=== PATIENT | female | born 1990 | race Two or more races ===

== ENCOUNTER 2020-01-24 15:51 | Emergency (ER) | payer MEDICAID, OTHER ==
[~2020-01-24] VITALS: Ht 160 cm; Wt 63.5 kg
[2020-01-24 16:00] VITALS: BP 114/75
[2020-01-24] MEDS ORDERED: Omnipaque-300 100ml vial INJ PRN (16:00)
--- NOTE | 2020-01-24 16:00 | NUR ---
ED Nurse Note: Pt brought in by ambulance [facility] d/t right sided lower abdominal pain that started today. Pt denies n/v/d. Denies fever. Respirations even and unlabored on room air. Vitals stable as documented.
[2020-01-24] MEDS ORDERED: KEPPRA500 M4 ORAL (16:05)
[2020-01-24] MEDS ORDERED: DiphenhydrAMINE 50mg/ml Inj IVP ONE (16:15)
[2020-01-24] MEDS ORDERED: Morphine Sulfate 2mg/ml Inj(IV/IM USE ONLY) IVP ONE (16:15)
--- NOTE | 2020-01-24 16:15 | NUR ---
ED Nurse Note: Applied seizure pads. Bed in lowest position.
--- NOTE | 2020-01-24 16:29 | Diagnostic Imaging Report ---
Indication: Chest pain Technique: One view of the chest Comparison: none Findings: Lungs and pleural spaces are clear. Heart size is normal. Impression: No acute process
--- NOTE | 2020-01-24 16:54 | Emergency Room Report ---
History of Present Illness General Chief Complaint: Abdominal Pain Source: Patient Present Illness HPI 29-year-old female with no segment past medical history brought in by paramedics due to increased abdominal pain the right side. Patient reports that she has history of cholelithiasis that was diagnosed 5 months ago however has not been able to see a specialist yet as patient has had insurance changes. Patient has been staying at a women's house after being found retirement on January. Reports that she has always been short of breath and has history of asthma. Denies any new onset of shortness of breath and cough or congestion. Denies fever and chills. Rates the pain right upper quadrant tenderness guarding. Denies any nausea vomiting at this time denies any loose stools or diarrhea. Reports that when she was in retirement she had her own self. 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 Denies . Denies drug use, tobacco smoke and other drug use. Denies alcohol intake at this time. Reports that has a history of anxiety. Is afebrile and vitals are within normal limits. Allergies: Coded Allergies: No Known Allergies (Unverified , 01/24/20) COVID-19 Screening Contact w/high risk pt: No Recent Travel to affected area: No Experienced COVID-19 symptoms?: No Patient History Past Medical History: see triage record Past Surgical History: none Pertinent Family History: none Last Menstrual Period: 01/17/20 Now: No Immunizations: UTD Reviewed Nursing Documentation: PMH: Agreed; PSxH: Agreed Nursing Documentation-PM Past Medical History: No History, Except For Hx Asthma: Yes Hx Gastrointestinal Problems: Yes - gallstone Hx Seizures: Yes Review of Systems All Other Systems: negative except mentioned in HPI Physical Exam Vital Signs Date Time Temp Pulse Resp B/P (MAP) Pulse Ox O2 Delivery O2 Flow Rate FiO2 01/24/20 15:57 98.2 60 17 105/72 (83) 100 Room Air Sp02 EP Interpretation: reviewed, normal General Appearance: alert, GCS 15, non-toxic, mild distress Head: normocephalic, atraumatic Eyes: bilateral eye normal inspection, bilateral eye PERRL ENT: hearing grossly normal, normal pharynx, no angioedema, normal voice Neck: full range of motion, supple/symm/no masses Respiratory: chest non-tender, lungs clear, normal breath sounds, no rhonchi, no wheezing, speaking full sentences Cardiovascular #1: regular rate, rhythm, no edema, no murmur Gastrointestinal: guarding - Right upper quadrant, Jose sign positive Rectal: deferred Genitourinary: no CVA tenderness Musculoskeletal: back normal Neurologic: alert, oriented Psychiatric: judgement/insight normal, memory normal, mood/affect normal, no suicidal/homicidal ideation Skin: no rash Lymphatic: no adenopathy Medical Decision Making PA Attestation All my diagnosis and treatment plans were reviewed ad discussed with my supervising physician Dr. Luther Diagnostic Impression: Primary Impression: Cholelithiases Additional Impressions: Liver hemangioma Amphetamine abuse ER Course 29-year-old female with no segment past medical history brought in by paramedics due to increased abdominal pain the right side. Patient reports that she has history of cholelithiasis that was diagnosed 5 months ago however has not been able to see a specialist yet as patient has had insurance changes. Patient has been staying at a women's house after being found retirement on January. Reports that she has always been short of breath and has history of asthma. Denies any new onset of shortness of breath and cough or congestion. Denies fever and chills. Rates the pain right upper quadrant tenderness guarding. Denies any nausea vomiting at this time denies any loose stools or diarrhea. Reports that when she was in retirement she had her own self. 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 Denies . Denies drug use, tobacco smoke and other drug use. Denies alcohol intake at this time. Reports that has a history of anxiety. Is afebrile and vitals are within normal limits. Ddx considered but are not limited to: appendicitis, cholecystis, gastritis, gastroenteritis, UTI, pyelonephritis, SBO, diverticulitis, influenza with GI manifestation, [place], complication with Vital signs: are WNL, pt. is afebrile H&PE are most consistent with: Cholelithiasis without cholecystitis, hemangioma , amphetamine abuse ORDERS: Abdominal pain set, lactic acid, abdominal ultrasound, EKG and chest x- ray, Zofran, ibuprofen ED INTERVENTIONS: NS bolus, morphine, Zofran, Benadryl DISCHARGE: At this time pt. is stable for d/c to home. Will provide printed patient care instructions, and any necessary prescriptions. Care plan and follow up instructions have been discussed with the patient prior to discharge. Follow-up with your primary doctor for referral to general surgeon, take medication as directed, avoid eating greasy food. If worsening symptoms return to emergency room EKG Diagnostic Results Rate: normal Rhythm: NSR ST Segments: no acute changes Other Impression No acute ST changes Chest X-Ray Diagnostic Results Chest X-Ray Diagnostic Results : Chest X-Ray Ordered: Yes # of Views/Limited/Complete: 1 View Indication: Shortness of Breath EP Interpretation: Yes PA Xray: Interpretation reviewed, by supervising MD, and agrees with findings. Interpretation: no consolidation, no effusion, no pneumothorax Impression: No acute disease Electronically Signed by: Mallory Mcarthur PA-C CT/MRI/US Diagnostic Results CT/MRI/US Diagnostic Results : Imaging Test Ordered: abd US Impression IMPRESSION: 2 echogenic foci within the liver measuring around 1 cm may represent atypical hemangiomas, nonspecific. May consider follow-up nonemergent multiphasic liver CT or MRI as warranted. A few shadowing gallstones without wall thickening or pericholecystic free fluid. Wall measures 3 mm. Report of a positive sonographic Jose's sign, clinically correlate. CBD 2 mm Last Vital Signs Date Time Temp Pulse Resp B/P (MAP) Pulse Ox O2 Delivery O2 Flow Rate FiO2 01/24/20 15:57 98.2 60 17 105/72 (83) 100 Room Air Disposition: HOME, SELF-CARE Condition: Stable Referrals: NON PHYSICIAN (PCP) Patient Instructions: Cholelithiasis, [id number] Additional Instructions: Follow-up with your primary doctor for referral to general surgeon, take medication as directed, avoid eating greasy food, avoid drinking alcohol, if worsening symptoms return to emergency room. Take medication as directed, follow-up with your primary doctor, you need to stay home for self quarantine due to Covid 19 precautions for 14 days Mallory Kerns Jan 24, 2020 16:54
[2020-01-24 17:07] LABS: BASOPHILS % (AUTO) 0.9 % (0.0-2.0); EOSINOPHILS % (AUTO) 1.1 % (0.0-3.0); HEMATOCRIT 39.3 % (37.0-47.0); HEMOGLOBIN 13.8 G/DL (12.0-16.0); LYMPHOCYTES % (AUTO) 38.3 % (20.0-45.0); MEAN CORPUSCULAR VOLUME 94 FL (80-99); MONOCYTES % (AUTO) 6.2 % (1.0-10.0); NEUTROPHILS % (AUTO) 53.5 % (45.0-75.0); PLATELET COUNT 212 K/UL (150-450); RED CELL DISTRIBUTION WIDTH 11.1 % (11.6-14.8); WHITE BLOOD COUNT 7.4 K/UL (4.8-10.8)
[2020-01-24 17:12] LABS: INR 1.1 (0.9-1.1)
[2020-01-24 17:37] LABS: CKMB 1.3 NG/ML (0.0-3.6)
[2020-01-24 18:00] VITALS: BP 121/78
--- NOTE | 2020-01-24 18:06 | Diagnostic Imaging Report ---
History: PAIN Exam: US ABDOMEN Comparison: None available FINDINGS: Abdominal aorta and inferior vena cava appear within limits. Visualized portions of the head and body of the pancreas appear within limits. 2 echogenic foci within the liver measuring around 1 cm may represent atypical hemangiomas, nonspecific. May consider follow-up nonemergent multiphasic liver CT or MRI as warranted. The liver measures 15.9 cm and otherwise appears within limits. A few shadowing gallstones without wall thickening or pericholecystic free fluid. Wall measures 3 mm. Report of a positive sonographic Jose's sign, clinically correlate. CBD 2 mm. The right kidney measures 9.7 cm in length. The left kidney measures 9.8 cm in length. No hydronephrosis or free fluid seen. The spleen measures 8.1 cm and appears within limits. IMPRESSION: 2 echogenic foci within the liver measuring around 1 cm may represent atypical hemangiomas, nonspecific. May consider follow-up nonemergent multiphasic liver CT or MRI as warranted. A few shadowing gallstones without wall thickening or pericholecystic free fluid. Wall measures 3 mm. Report of a positive sonographic Jose's sign, clinically correlate. CBD 2 mm
[2020-01-24 19:07] LABS: APPEARANCE,URINE SLIGHTLY CLOUDY; BILIRUBIN, URINE NEGATIVE (NEGATIVE); COLOR,URINE AMBER; GLUCOSE, URINE (UA) NEGATIVE (NEGATIVE); KETONES,URINE 2+ (NEGATIVE); NITRITE,URINE NEGATIVE (NEGATIVE); PH,URINE 7 (4.5-8.0); PROTEIN,URINE NEGATIVE (NEGATIVE); UROBILINOGEN,URINE 1 MG/DL (0.0-1.0)
--- NOTE | 2020-01-24 19:13 | NUR ---
HAND-OFF: Report given to KINSEY Reyes. Pt in stable condition; plan of care endorsed.
--- NOTE | 2020-01-24 19:15 | NUR ---
ED Nurse Note: Report received from KINSEY Quinones. Pt was woken up upon entering room, she is in no acute distress and resting comfortably. Will continue to monitor pt.
[2020-01-24 19:48] LABS: LEUKOCYTE ESTERASE ,URINE 1+ (NEGATIVE)
[2020-01-24 20:17] LABS: ANION GAP 13 mmol/L (5-15); BLOOD UREA NITROGEN 15 mg/dL (7-18); CALCIUM 9.6 MG/DL (8.5-10.1); CARBON DIOXIDE 23 MMOL/L (21-32); CHLORIDE 103 MMOL/L (98-107); CREATININE 0.8 MG/DL (0.55-1.30); POTASSIUM 3.3 MMOL/L (3.5-5.1); SODIUM 139 MMOL/L (136-145)
[2020-01-24 20:33] LABS: ALANINE AMINOTRANSFERASE 31 U/L (12-78); ALBUMIN 4.1 G/DL (3.4-5.0); ALBUMIN/GLOBULIN RATIO 1.4 (1.0-2.7); ALKALINE PHOSPHATASE 52 U/L (46-116); ASPARTATE AMINO TRANSFERASE 26 U/L (15-37); BILIRUBIN,TOTAL 0.6 MG/DL (0.2-1.0)
[2020-01-24] MEDS ORDERED: IBUPROFEN400 MG ORAL (20:37)
[2020-01-24] MEDS ORDERED: ZOFRAN4 M1 ORAL (20:37)
[2020-01-25] VITALS: BP 124/75
--- NOTE | 2020-01-25 | NUR ---
ED Nurse Note: Pt is awake and alert, resting in bed comfortably with no acute distress. Pt is waiting on taxi at this time, clear for DC.
[2020-01-25 03:45] VITALS: BP 117/80
--- NOTE | 2020-01-25 03:45 | NUR ---
ER DISCHARGE NOTE: Patient is cleared to be discharged per ERMD, pt is aox4, on room air, with stable vital signs. pt was given dc and prescription instructions, pt was able to verbalize understanding, pt id band and iv site removed without complications. pt is able to ambulate with steady gait. pt took all belongings.
== END 2020-01-25 03:56 | disposition home or self-care (01) ==
LOC: EDBD 15:51 → EMR 16:05
DX: K80.20 Calculus of gallbladder without cholecystitis without obstruction (principal); D18.09 Hemangioma of other sites; F15.10 Other stimulant abuse, uncomplicated; G40.909 Epilepsy, unspecified, not intractable, without status epilepticus
CPT/HCPCS: 36415; 71045; 76700; 80053; 80307; 81003; 81025; 82553; 83605; 83690; 83880; 84484; 84703; 85025; 85610; 85730; 93005; 96361; 96374; 96375; J1200; J2270; J2405; J7030; Z7502; 99284